=== PATIENT | female | born 1995 | race Caucasian/White ===

== ENCOUNTER 2020-08-22 14:50 | Day surgery (SDC) | payer SELFPAY, OTHER ==
[2020-08-22] VITALS (7 sets, daily range): BP systolic 112–127; BP diastolic 68–92; PULSE 67–102; RESP 16; TEMP 36.8–37.1; O2SAT 98–100; BMI 42.1
--- NOTE | 2020-08-22 | POC_PTH ---
PATIENT: MAUREEN FLETCHER [place] [facility] [place][id number] AGE/SX: 24/ ROOM: RE08/22/[address]: Dr. Vickey Leung MD : [id number] BED: DIS: 08/22/2020 SPEC #: [id number] RECD: 08/23/20 07:53 STATUS: MINESH REFuentes #: [id number] UBALDO: 08/22/20 00:[address]: Vickey Leung DEPT: SURGICAL PATHOLOGY RECD BY: Josh Benites ENTERED: 08/23/20 08:42 SP TYPE: PROD CONC OTHR DR: No Primary Care Phys Tissues: Product of conception, NOS Procedures: Surgery Specimen Level IV HEADER OPERATION: Suction dilation and curettage PRE-OP DIAGNOSIS: Threatened TISSUE SUBMITTED: Products of conception MICROSCOPIC DIAGNOSIS Products of conception: [place]id[place], gestational endometrium and immature chorionic villi (products of conception). SJ:quita 08/24/2020 MICROSCOPIC DESCRIPTION Slides are reviewed. GROSS DESCRIPTION Received in fixative is one container labeled with the patient's name and designated products of conception. The specimen consists of multiple fragments of hemorrhagic soft tissue that in aggregate measure 6 x 7 x 2 cm. tissue is not identified. Parachute Panel Joiner tissue is submitted in three cassettes. / SJ:quita 08/23/20 TC:5 CPT: 94312
--- NOTE | 2020-08-22 13:52 | PCM.HP.BLA ---
History and Physical Date of Admission: 08/22/20 Surgical History and Physical Susan Stephens, a 24 year old female 1 0 1 0 1, presents for Suction D and E. on August 22, 2020 at . --Inevitable Miscarriage --Threatened AB which began 08/16/20. Susan claims it started suddenly and has been present constantly for 5days. It occurs all the time. It is located in the vagina. Susan characterizes it to be non-radiating. Associated signs and symptoms are Heavy vag bleeding. U/S yesterday showed without FHTs in cervix. Probably about 8 weeks gestation. MEDICATIONS HISTORY: ALLERGIES: No Known Drug Allergies Infections - Chicken pox childhood Illnesses - no serious past illnesses Hospitalizations - None Review of Systems: GENERAL - Denies fever, or chills SKIN - Denies skin changes EYES - Denies visual changes EARS - Denies difficulty hearing NOSE - Denies nasal congestion or bleeding MOUTH - Denies sore throat or difficulty swallowing NECK - Denies pain or swelling RESPIRATORY - Denies shortness of breath or wheezing CARDIOVASCULAR - Denies palpitations or chest pain GASTROINTESTINAL - Denies nausea, vomiting, diarrhea, constipation GENITOURINARY - Denies dysuria, frequency of urination, incontinence of urine MUSCULOSKELETAL - Denies joint or muscle pain NEUROLOGICAL - Denies localized numbness or weakness PSYCHIATRIC - Denies depression or anxiety ENDOCRINE - Denies heat or cold intolerance, weight loss or gain HEMATO-IMMUNOLOGIC - Denies excesive bleeding with cuts SOCIAL HISTORY: Alcohol Use - denies drinking Smoking - denies smoking Diet - no special diet Exercise - minimal Employer - Unemployed Job Description - Homemaker Illicit Drug Use - denies use of street drugs Sexual Activity - Spouse-Sig Other Name - Carol Stephens Spouse-Sig Other Occupation - [employer] - FAMILY HISTORY: MENSTRUAL HISTORY: LMP Known?- Yes, LMP - 06/15/20 PAST PREGNANCIES: Total Pregnancies - 3; Full Term Pregnancies - 1; Premature - 0; Abortions, Induced - 0; Abortions, Spontaneous - 1; Ectopics - 0; Multiple Births - 0; Living Children - 1 SURGICAL HISTORY: 1. None PHYSICAL EXAM BP- 128/88 Sitting, Left arm, large cuff Pulse- 92 Regular Weight- 244.80378 lbs Height- 64 inch BMI:41.97 CONSTITUTIONAL - NAD, well nourished, and well developed SKIN - No rash, lesions, or ulcers HEENT - Normocephalic, PERRLA, EOMI NECK - No nodes, no nuchal rigidity and thyroid normal size and texture LYMPH NODES - Palpation of lymph nodes in neck and groins within normal limits LUNGS - CTA x2 without wheezes, crackles or rales CARDIAC - Regular rate and rhythm without rubs, murmurs, or gallops BREAST - No dominant masses, no tenderness, no axillary adenopathy, no nipple discharge, no skin changes ABDOMEN - Without hepatosplenomegaly, distention, masses, rebound, or guarding; normal bowel sounds; no hernias EXTREMITIES - No edema or calf tenderness NEUROLOGICAL - Cranial nerves II-XII grossly intact PSYCHIATRIC - A and O to time, place, person, mood and affect ASSESSMENT/PLAN: 1. Threaten Antepart Pelvic u/s to confirmed incomplete MC yesterday. Heavy bleeding today. Will proceed with Suction D and E. Discussed RBAs and all questions answered.
[2020-08-22] MEDS: Lactated Ringers 1,000 ML 100 ML IV (15:48)
[2020-08-22 16:04] LABS: Hematocrit 37.3 % (37-47); Hemoglobin 12.3 g/dL (12.0-15.0); Mean Corpuscular Hgb 28.7 pg (27.0-32.0); Mean Corpuscular Volume 87.1 fL (81-99); Mean Platelet Vol. 11.1 fl (6.2-12.0); Platelet Count 255 K/mm3 (150-450); RBC Distribution Width CV 12.2 % (11.6-14.6); Red Blood Count 4.28 M/mm3 (4.2-5.4); White Blood Count 8.3 K/mm3 (4.4-11.0)
[2020-08-22 16:07] LABS: Prothrombin Time (Protime)PT. 12.9 SECONDS (11.7-14.9)
[2020-08-22 16:08] LABS: Partial Thromboplast Time 26.8 Seconds (24.1-36.2)
--- NOTE | 2020-08-22 18:01 | PCM.OPRPT ---
Problems Associated Problem List Diagnoses (1) Incomplete : Report of Operation Date of Procedure: 08/22/20 Pre-Operative Diagnosis: Incomplete Miscarriage Post-Operative Diagnosis: Incomplete Miscarriage Surgery/Procedure Performed:: Suction Dilation and Evacuation Description of Surgical Findings:: 10 cm endometrial cavity with products of conception Type of Anesthesia: MAC Anesthesiologist: Brian Martinez Specimen's removed: Products of conception Estimated Blood Loss (mL): Minimal Fluids Replaced: Crystalloid Description of Procedure: Surgeon: Vickey Leung MD, FACOG Indication: 24 year patient with incomplete AB at 8 weeks gestation with a 8 week IUP without FHTs. Pt has been counseled regarding the risks, benefits, and alternatives of this procedure and all questions were answered. Procedure: Patient was taken to the operating room where she was given IV sedation. The patient was prepped and draped in the usual sterile fashion. The anterior cervix was grasped with a tenaculum and cervix was dilated. An 8 mm suction curette was inserted into the cervix and all contents removed. Uterus was gently curetted and remaining tissue was removed by reinserting the suction curette. The patient tolerated the procedure well and was taken to the recovery room in satisfactory condition. Sponge, instruments and needle counts were all correct. There were no apparent complications of the surgery. Grafts/Implants Used: None Complications None Admit VTE Documentation VTE Present on Admission: Yes VTE Mechan Device Prophylaxis: SCD's
[2020-08-22] MEDS: Cefotetan 2 GM in 0.9% NS 100 ML IV (18:09)
--- NOTE | 2020-08-22 18:26 | PCM.DC ---
Discharge Instructions Diet Discharge Diet: No restrictions Activity Discharge Activity: May Shower and May Take a Tub Bath May resume sexual activity in: 1-2 weeks Dressing / Incision Call your doctor if you observe: Fever of 101 or Higher, Inability to urinate, Inability to have a bowel movement and Using more than one pad per hour Discharge Plan Admission Primary Reason for Your Visit: Inevitable Miscarriage Attending Provider: Vickey Leung Primary Care Provider: Care Physician,No Primary Discharge Orders/Prescriptions Prescriptions: No Action + Iron 1 mg Tablet 4 tab PO BREAKFAST RF: 0 Referrals / Follow Up: Care Physician,No Primary [Primary Care Provider] - Disposition Disposition (needs filled in before D/C Order can be placed): Home, self care
== END 2020-08-22 19:33 | disposition home or self-care (01) ==
LOC: SDC 14:55 → ACINP 14:59
PROVIDERS: Referring Provider Obstetrics & Gynecology; Visit Provider Obstetrics & Gynecology
PROC: (CPT 59812; principal; 2020-08-22 16:15)
DX: O03.4 Incomplete spontaneous abortion without complication (principal)
CPT/HCPCS: 59812; 85027; 85610; 85730; 86850; 86900; 86901; 87426; 88305; J7120

== ENCOUNTER → 2021-04-02 | Outpatient (CLI) | payer OTHER, SELFPAY ==
[2021-04-04 22:07] LABS: Chlamydia By Nucleic Acid AMP Negative (Negative)
[2021-04-05 08:08] LABS: Gonococcus By Nucleic Acid AMP Negative (Negative)
[2021-04-08 20:14] LABS: HPV Reflexed? NOT INDICATED
== END | disposition home or self-care (01) ==
LOC: LABSPEC 04-03 09:31
PROVIDERS: Visit Provider Obstetrics & Gynecology
DX: Z32.01 Encounter for pregnancy test, result positive (principal); Z11.3 Encounter for screening for infections with a predominantly sexual mode of transmission
CPT/HCPCS: 87491; 87591; 88175; G0145

== ENCOUNTER 2021-07-09 17:55 | Outpatient (CLI) | payer OTHER, SELFPAY ==
[2021-07-09 18:08] LABS: Hematocrit 32.7 % (37-47); Hemoglobin 11.2 g/dL (12.0-15.0); Mean Corp Hgb Conc 34.3 g/dL (32-36); Mean Corpuscular Hgb 29.9 pg (27.0-32.0); Mean Corpuscular Volume 87.2 fL (81-99); Mean Platelet Vol. 11.7 fl (6.2-12.0); Platelet Count 196 K/mm3 (150-450); RBC Distribution Width CV 14.6 % (11.6-14.6); RBC Distribution Width SD 45.9 fl (35.1-43.9); Red Blood Count 3.75 M/mm3 (4.2-5.4); White Blood Count 6.6 K/mm3 (4.4-11.0)
[2021-07-09 18:14] LABS: Glucose Challenge Gest 1H 50g 155 mg/dL (70-140)
== END 2021-07-09 23:59 | disposition home or self-care (01) ==
PROVIDERS: Visit Provider Obstetrics & Gynecology
DX: Z34.82 Encounter for supervision of other normal pregnancy, second trimester (principal)
CPT/HCPCS: 82950; 85027

== ENCOUNTER 2021-09-17 05:05 | Inpatient (IN) | payer SELFPAY ==
[2021-09-17] VITALS (16 sets, daily range): BP systolic 98–136; BP diastolic 58–93; PULSE 79–104; RESP 16–20; TEMP 36.1–37.1; O2SAT 95–100; BMI 48.3
[2021-09-17] MEDS: Lactated Ringers 1,000 ML 999 ML IV (05:25)
[2021-09-17 05:38] LABS: Absolute Lymphocyte Count 2.09 X10^3/uL (0.83-4.51); Absolute Neutrophil Count 7.4 X10^3/uL (2.0-7.7); Basophil# 0.05 X10^3/uL; Basophil% 0.5 % (0-1); Eosinophil# 0.07 X10^3/uL; Eosinophils% 0.7 % (0-5); Hematocrit 34.9 % (37-47); Hemoglobin 11.6 g/dL (12.0-15.0); Lymphocyte # 2.09 X10^3/ul (0.83-4.51); Lymphocyte % 20.7 % (19-41); Mean Corp Hgb Conc 33.2 g/dL (32-36); Mean Corpuscular Hgb 28.4 pg (27.0-32.0); Mean Corpuscular Volume 85.5 fL (81-99); Mean Platelet Vol. 11.3 fl (6.2-12.0); Monocyte% 4.9 % (0-10); NRBC Flagged by Analyzer 0 % (0-5); Neutrophil # 7.36 X10^3/uL (2.7-7.7); Neutrophil % 72.7 % (47-70); Platelet Count 203 K/mm3 (150-450); RBC Distribution Width CV 14.7 % (11.6-14.6); RBC Distribution Width SD 45.1 fl (35.1-43.9); Red Blood Count 4.08 M/mm3 (4.2-5.4); White Blood Count 10.1 K/mm3 (4.4-11.0)
[2021-09-17] MEDS: Acetaminophen 500 MG Tablet 1000 MG PO ×3 (05:41→18:27)
[2021-09-17] MEDS: Lactated Ringers 1,000 ML 150 ML IV (06:25)
[2021-09-17] MEDS: Sodium Citrate/Citric Acid 30 ML UDC PO (07:12)
--- NOTE | 2021-09-17 07:16 | HP.PCM.OB_ITS ---
HPI - General General Date of Admission: 09/17/21 HPI Narrative MAUREEN STEPHENS, is a 25 F who presents for scheduled repeat section at 37 wga. She has hx prior T incision on the uterus. She has no complaints today. Maternal Data Information TONYA Calculator Estimated Delivery Date Method Current WG Current Estimate 10/08/21 Manual 37w 0d PFSH PFSH Medical History macrosomia Oligohydramnios Spontaneous Home Medications [id number] [ + Iron] 4 tab PO DAILY 08/22/20 [History Last Taken 09/16/21 08:00] Allergy/AdvReac Type Severity Reaction Status Date / Time No Known Allergies Allergy Verified 08/22/20 14:13 Surgical History History of Social History household members: spouse and children Smoking Status: Never smoker History 4 Elective abortions 0 Hx Para 1 Spontaneous abortions 2 Hx # Term Pregnancies 1 Ectopic pregnancies Hx # Pregnancies 0 Multiple births # of living children 1 Past Pregnancies Del. Date Name GA/Weeks Outcome Route Bth Weight Gen Labor Lgth Anesthesia Del Locatn Provider FOB 01/28/19 Baltazar Sushil 38 live - full term [id number] (45 95h) Male 0 [facility] Cinthia Stephens Delivery Date: 01/28/19 breech, macrosomia Kathrin Jean Baptiste NST FHR Rate Baby A Baseline: 130 Variability:: Moderate Accelerations:: 15 x 15 Decelerations:: None NST Reactive:: Yes FHR Category:: Category I Uterine Activity:: 0/10 Vital Signs Vital Signs Vital Signs: 09/17/21 05:35 Temperature 97.3 F L Temperature Source Temporal Pulse Rate 90 Respiratory Rate 18 Blood Pressure 136/86 H Blood Pressure Mean 102 Blood Pressure Source Monitor Blood Pressure Position Semi-Fowlers Blood Pressure Location Left Arm Pulse Ox 98 Oxygen Delivery Method Room Air Weight Weight: 127.641 kg Body Mass Index (BMI) 48.3 Physical Exam Const alert, oriented x3 and no apparent distress HEENT normocephalic Resp normal respiratory effort, normal air movement and clear to auscultation bilaterally Cardio regular rate and regular rhythm GI normal to inspection, nondistended, normoactive bowel sounds, soft to palpation, non-tender and non-distended Inspection: gravid Extremity no calf tenderness and no pedal edema Labs Labs Labs: Blood Type O POSITIVE Antibody Screen NEGATIVE Hct 34.9 % (37-47) L Hgb 11.6 g/dL (12.0-15.0) L Chlamydia DNA (MOHAN) Negative (Negative) Neisseria gonorrhoeae DNA (MOHAN) Negative (Negative) HIV 1&2 Antibody Pending Glucose 1 Hr 50 gm 155 mg/dL (70-140) H Assessment & Plan (1) 37 weeks gestation of : PLAN: Proceed as planned with repeat section.
[2021-09-17] MEDS: Cefazolin 2 GM in 0.9% Normal Saline 100 ML IV (07:24)
--- NOTE | 2021-09-17 08:32 | OP.PCM_ITS ---
Assessment & Plan (1) delivery delivered: (2) 37 weeks gestation of : Maternal Data Information TONYA Calculator Estimated Delivery Date Method Current WG Current Estimate 10/08/21 Manual 37w 0d Details Operative Information Date of Procedure: 09/17/21 Pre-Operative Diagnosis: 1. 37 weeks gestation 2. History of prior section with T-incision Post-Operative Diagnosis: 1. 37 weeks gestation 2. History of prior section with T-incision Indications for : Repeat Elective Indications Narrative: 25-year-old 4 para 1-0-2-1 presents at 37 weeks gestational age for scheduled repeat section. She had a history of a prior full-term section with T-incision. She is counseled regarding procedural risks, benefits, indications and opted to proceed. Classification: Scheduled Procedure Type: low transverse roads superintendent #1: Edwige Baez Type of Anesthesia: Spinal Anesthesiologist: Brian Martinez Antibiotic Given: Ancef 2 grams IV x1 Estimated Blood Loss: 900 ml Fluids Replaced: 1200 ml Findings Description of Procedure: The patient was taken to the operating room and spinal analgesia was administered. She is placed in a dorsal supine position with left lateral tilt. The perineum and abdomen were prepped and draped in sterile fashion. And the spinal was found to be adequate. A Pfannenstiel incision was made using a scalpel and brought down to incise the subcutaneous tissue and rectus fascia at the midline. Subcutaneous tissue was bluntly dissected off the fascia laterally. The fascial incision was dissected laterally and cephalad using curved Slaughter scissors. The superior leaflet of the rectus fascia was grasped using Darwin clamps and bluntly dissected and sharply dissected from the underlying rectus muscle. In a similar fashion the inferior rectus fascia was dissected from the underlying muscle. The rectus muscles were bluntly at the midline. The peritoneum was identified and entered [sharply]. The bladder blade was placed into the abdomen and the vesicouterine peritoneal fold identified. The fold was incised and a bladder flap created. Bladder blade was then repositioned to the abdomen. A low transverse hysterotomy was made using the [Metzenbaum scissors] to level of the membranes. The hysterotomy was extended bluntly cephalad and caudad. The membranes were then ruptured revealing clear fluid. The head was elevated and brought to the level of the hysterotomy and the delivered revealing vigorous [female] infant. The cord was doubly clamped and cut after 60 seconds. The infant was passed to awaiting [nursery personnel]. The placenta was [expressed] from the uterus and appeared intact on inspection. The uterus was cleared of debris. The hysterotomy was then repaired using 0 Vicryl running lock suture. A second imbricating layer was also placed for additional hemostasis. An additional [id number] 0 Vicryl suture was placed with hemostasis obtained. The bladder blade was removed. The anterior cul-de-sac was cleared of debris. The peritoneum was reapproximated using 2-0 Vicryl running suture. The rectus fascia was closed using 0 Vicryl running suture. small capillary bleeding controlled using the Bovie device. The subcutaneous tissue was reapproximated using 2-0 Vicryl. The skin was closed using 4-0 Monocryl subcuticularly by the ADVANCED RESEARCH PROGRAMS DIRECTOR under my supervision. This was followed by Cavilon and a silver Mepilex occlusive dressing was placed over the incision. The fundus was firm. The patient was then transferred to the recovery room without complication. Sponge, instrument, and needle counts were correct ?2. Presentation: Positive for Vertex Amniotic Membrane Rupture Type: Artificial Amniotic Fluid Description: Clear Placental Delivery Description: Expressed Placenta Disposition: [facility] Cord Vessel Description: 3 Vessels Cord Entanglement: Around neck x 1, loose A Gender: Female (1 minute): 8 (5 minute): 9 Delayed Cord Clamping: Yes Complications Risks of Surgery Discussed w/Patient: Bleeding, Anesthesia Risks, Infection, Need for Future C-Sections and Injury to surrounding structure(s) including bowel and bladder
[2021-09-17] MEDS: Oxytocin 30 units/NS 500 ml 30 UNITS/500 ML IV.SOLN 167 UNITS IV (08:55)
[2021-09-17] MEDS: Ketorolac 30 MG/ML Syringe IV ×3 (09:28→20:21)
[2021-09-17] MEDS: HYDROmorphone 1 MG/ML Syringe IV (10:21)
[2021-09-17 10:38] LABS: ALB/GLOB Ratio 0.5 RATIO (0.9-2.4); AST(SGOT) 17 U/L (15-37); Alanine Aminotransfer ALT/SGPT 22 U/L (13-56); Albumin, Serum 2.2 g/dL (3.2-5.0); Alkaline Phosphatase 141 U/L (45-117); Anion Gap 7 (5-15); BUN 7 mg/dL (7-18); BUN/Creat Ratio 10.5 RATIO (10-20); Calcium,Total 8.7 mg/dL (8.5-10.1); Chloride 109 mmol/L (98-107); Creatinine, Serum 0.67 mg/dL (0.55-1.02); EST Glomerular Filtration Rate 115 mL/min (>60); Est Glom Filt Rate - Afr Amer 139 mL/min (>60); Globulin 4.4 g/dL (2.2-4.2); Glucose 100 mg/dL (74-106); LDH 234 U/L (84-246); Potassium 3.9 mmol/L (3.5-5.1); Protein, Total 6.6 g/dL (6.4-8.2); Sodium Level 139 mmol/L (136-145); Uric Acid 5.7 mg/dL (2.6-6.0)
--- NOTE | 2021-09-17 11:04 | NURSING ---
Ligasure machine [id number] used for cautery
[2021-09-17] MEDS: Lactated Ringers 1,000 ML 100 ML IV (12:00)
[2021-09-17] MEDS: Senna/Docusate Sodium 1 Tablet PO (12:04)
[2021-09-17] MEDS: oxyCODONE 5 MG Tablet PO (13:18)
[2021-09-17 13:37] LABS: HIV - WCH Nonreactive (Nonreactive)
[2021-09-17] MEDS: 0.9% Saline Lock 10 ML Syringe IV ×2 (16:08→20:21)
--- NOTE | 2021-09-17 19:15 | NURSING ---
1915- Pt. pumped for 20 minutes. Breastmilk stored in breastmilk fridge. Education given about importance of pumping every 3 hours. Right now, pt. needs help setting up pump but is open to learning more about setting it up and cleaning parts herself after she gets some rest.
[2021-09-17] MEDS: Enoxaparin 40 MG/0.4 ML Syringe SC (20:22)
--- NOTE | 2021-09-17 21:50 | NURSING ---
2150- Pt. set up to pump. Pumped for 22 minutes and breastmilk stored in breastmilk fridge.
[2021-09-18 00:53] VITALS: BP 121/78; PULSE 88; RESP 18; TEMP 36.6; O2SAT 97
[2021-09-18] MEDS: Acetaminophen 500 MG Tablet 1000 MG PO ×2 (00:54→07:50)
--- NOTE | 2021-09-18 01:33 | NURSING ---
0100- Pt. pumped both breasts for 20 minutes. Milk collected on swab and placed in breastmilk fridge.
[2021-09-18] MEDS: Ketorolac 30 MG/ML Syringe IV (03:55)
[2021-09-18] MEDS: 0.9% Saline Lock 10 ML Syringe IV (03:55)
[2021-09-18 03:59] VITALS: BP 127/88; PULSE 77; RESP 17; TEMP 36.4; O2SAT 98
[2021-09-18 04:18] LABS: Hematocrit 33.3 % (37-47); Hemoglobin 10.7 g/dL (12.0-15.0); Mean Corp Hgb Conc 32.1 g/dL (32-36); Mean Corpuscular Volume 87.2 fL (81-99); Mean Platelet Vol. 11.2 fl (6.2-12.0); Platelet Count 174 K/mm3 (150-450); RBC Distribution Width CV 14.7 % (11.6-14.6); RBC Distribution Width SD 46.4 fl (35.1-43.9); Red Blood Count 3.82 M/mm3 (4.2-5.4); White Blood Count 8.7 K/mm3 (4.4-11.0)
--- NOTE | 2021-09-18 04:25 | NURSING ---
0413- Pt. sitting up in chair pumping. Maternal/[place] [facility] book and education reviewed. Pt. and deny questions at this time. Pt. pumping for 20 minutes then breast milk collected and stored in breastmilk fridge. Family discussed discharge and states that they will call between 7 and 8am to schedule a pile driver operator for discharge sometime between 10am and noon.
[2021-09-18 07:40] VITALS: BP 135/90; PULSE 84; RESP 16; TEMP 36.2; O2SAT 96
--- NOTE | 2021-09-18 08:50 | PCM.DC ---
Discharge Instructions Diet Discharge Diet: No restrictions Activity Discharge Activity: Return to Normal Activity and May Shower May resume sexual activity in: 4-6 weeks Lifting Restrictions: 10 lb Dressing / Incision Call your doctor if you observe: Using more than 1 pad per hour, Shortness of breath, Chest pain, Calf discomfort, Uncontrolled pain and - (Persistent or severe headache) Suture Line Care: Avoid Pulling/Pushing Remove Dressing in: 4 days Cleanse incision/area with: Soap & Water Follow Up Care Please Follow Up With: Vickey Leung MD When: 2 weeks for incision check 6 weeks for visit Test Results: Test results from this visit will be discussed in further detail at your follow-up appointment, if applicable. Discharge Plan Admission Admit Date/Time: 09/17/21 05:05 Primary Reason for Your Visit: delivery Attending Provider: Kathrin Gaming Primary Care Provider: Care Physician,Nichole Primary Discharge Orders/Prescriptions Prescriptions: New ibuprofen 600 mg Tablet 600 mg PO Q8H PRN (Reason: pain) Qty: 30 RF: 0 oxycodone 5 mg Tablet 5 mg PO Q6H PRN PRN (Reason: Pain Score 4-10) 5 Days Qty: 20 RF: 0 Continued jlukfnmr-[id number]-Dq-FA 1 mg Tablet 4 tab PO DAILY RF: 0 Referrals / Follow Up: Care Physician,No Primary [Primary Care Provider] - Disposition Disposition (needs filled in before D/C Order can be placed): Home, Self Care
--- NOTE | 2021-09-18 08:52 | PN.OBGYN_ITS ---
Subjective Subjective Denies headache, vision changes, upper abdominal pain. + flatus. Tolerates PO. No difficulty voiding. Pain well controlled and she is out of bed and ambulating. Objective Data Objective Data Vital Signs: Vital Signs Temp Pulse Resp BP Pulse Ox 97.1 F L 84 16 135/90 H 96 09/18/21 07:40 09/18/21 07:40 09/18/21 07:40 09/18/21 07:40 09/18/21 07:40 Oxygen Delivery Method Room Air Weight: 127.641 kg Body Mass Index (BMI) 48.3 Intake & Output: Intake and Output for Last 24 Hours 09/16/21 09/17/21 09/18/21 23:59 23:59 23:59 Intake Total 3964.17 / 3964.17 Output Total 3000 / 3000 Balance 964.17 / 964.17 Lab / Micro Data Result Diagrams: 09/18/21 04:12 09/17/21 09:54 Labs: Laboratory Results - last 24 hr 09/17/21 05:20: HIV 1&2 Antibody Nonreactive 09/17/21 09:54: Sodium 139, Potassium 3.9, Chloride 109 H, Carbon Dioxide 23.0, Anion Gap 7, BUN 7, Creatinine 0.67, Estim Creat Clear Calc 111.80, Est GFR (MDRD) Af Amer 139, Est GFR (MDRD) Non-Af 115, BUN/Creatinine Ratio 10.5, Glucose 100, Uric Acid 5.7, Calcium 8.7, Total Bilirubin 0.20, AST 17, ALT 22, Alkaline Phosphatase 141 H, Lactate Dehydrogenase 234, Total Protein 6.6, A lbumin 2.2 L, Globulin 4.4 H, Albumin/Globulin Ratio 0.5 L 09/18/21 04:12: WBC 8.7, RBC 3.82 L, Hgb 10.7 L, Hct 33.3 L, MCV 87.2, MCH 28.0, MCHC 32.1, RDW Std Deviation 46.4 H, RDW Coeff of Diann 14.7 H, Plt Count 174, MPV 11.2 Micro: Microbiology 09/17/21 05:20 Nasal Secretion SARS-CoV-2 Antigen (Rapid) - Final Physical Exam Const alert, oriented x3 and no apparent distress Resp normal respiratory effort, normal air movement and clear to auscultation bilaterally Cardio regular rate, regular rhythm, S1 normal heart sound and S2 normal heart sound GI normal to inspection, nondistended, normoactive bowel sounds, soft to palpation, non-tender and non-distended GI Narrative: incisional dressing c/d/i Manual OB Exam: other lochia scant Uterus Palpation: uterus fundus firm Extremity no calf tenderness Assessment & Plan (1) delivery delivered: PLAN: POD#1 s/p uncomplicated section Pumping Rh positive transferred to [facility] si/sx preeclampsia, with labs normal. Will d/c today with plan for office BP check and incision check in 2 weeks. Si/sx preeclampsia reviewed
[2021-09-18] MEDS: Enoxaparin 40 MG/0.4 ML Syringe SC (09:53)
[2021-09-18] MEDS: Senna/Docusate Sodium 1 Tablet PO (09:53)
[2021-09-18] MEDS: Ibuprofen 600 MG Tablet PO (09:54)
== END 2021-09-18 10:45 | disposition home or self-care (01) | DRG 788 ==
PROVIDERS: Admitting Provider Obstetrics & Gynecology; Visit Provider Obstetrics & Gynecology
PROC: 10D00Z1 Extraction of Products of Conception, Low, Open Approach (ICD-10-PCS; CPT 59514; principal; 2021-09-17 07:15)
DX: O34.218 Maternal care for other type scar from previous cesarean delivery (principal); O69.81X0 Labor and delivery complicated by cord around neck, without compression, not applicable or unspecified; Z37.0 Single live birth; Z3A.37 37 weeks gestation of pregnancy
CPT/HCPCS: 59050; 80053; 83615; 84550; 85025; 85027; 86703; 86850; 86900; 86901; 87426; 99218; J7120; A4216; G0378; J2405